=== PATIENT | male | born 1945 | race Caucasian/White ===

== ENCOUNTER → 2017-03-17 | Outpatient (CLI) | payer MEDICARE ==
[2015-04-06 07:00] VITALS: BP 137/77
[~2017-03-17] MED LIST: ASPI-482 PO; ASPI-630 PO; CALC-44 PO; FERR325C PO; FISH OIL OMEGA1 EACH PO; LOSA1TAB16 PO; METO50TA10 PO; OXYC1TAB7 PO; SILO4CAP PO; SIMV40TA3 PO; TERA5CAP3 PO
--- NOTE | 2017-03-17 10:31 | CARD ---
APPROVED REPORT EXAM: Two-dimensional and M-mode echocardiogram with Doppler and color Doppler. Other Information Quality : GoodHR: 50bpm Rhythm : Bradycardia INDICATION Dyspnea RISK FACTORS Hypertension Hyperlipidemia Smoking 2D DIMENSIONS RVDd2.8 (2.9-3.5cm)Left Atrium(2D)5.0 (1.6-4.0cm) IVSd1.2 (0.7-1.1cm)Aortic Root(2D)3.2 (2.0-3.7cm) LVDd5.6 (3.9-5.9cm)LVOT Diameter2.4 (1.8-2.4cm) PWd1.3 (0.7-1.1cm)LVDs3.8 (2.5-4.0cm) FS (%) 32.9 %SV94.4 ml LVEF(%)60.7 (>50%) Aortic Valve AoV Peak Marcello.99.0cm/sAoV VTI23.1cm AO Peak GR.3.9mmHgLVOT Peak Marcello.64.5cm/s LVOT VTI 14.31cmAO Mean GR.2mmHg YANG (VMAX)2.30up8SWR (VTI)2.89cm2 Mitral Valve MV E Nacpltcf27.5cm/sMV DECEL TVWL336wm MV A Qgoaloel46.9cm/sMV E Mean Gr.1mmHg MV HET52ybK/A Ratio1.4 MV A Xponuosw89llYQF (PHT)2.58cm2 TDI E/Lateral E'6.0E/Medial E'7.8 Pulmonary Valve PV Peak Wywwlnhw51.5cm/sPV Peak Grad.2mmHg Tricuspid Valve TR P. Uvktjeln333ur/sTR Peak Gr.22mmHg Pulmonary Vein S1 Zsacpwhy20.1cm/sD2 Jnnjcijj20.8cm/s PVa plknlkpk43rvep LEFT VENTRICLE The left ventricle is normal size. There is mild concentric left ventricular hypertrophy. Low normal EF of 50-55% Subtle mild global hypokinesis. Otherwise, no significant wall motion abnormalities. The left ventricular diastolic function and filling is normal for age. No left ventricle thrombus noted on this study. RIGHT VENTRICLE The right ventricle is normal size. There is normal right ventricular wall thickness. The right ventr icular systolic function is normal. ATRIA The left atrium is mdoerately dilated. The right atrium size is normal. The interatrial septum is int act with no evidence for an atrial septal defect or patent foramen ovale as noted on 2-D or Doppler i maging. AORTIC VALVE The aortic valve is not well visualized. The aortic valve is trileaflet. Doppler and Color Flow revea led no significant aortic regurgitation. There is no significant aortic valvular stenosis. MITRAL VALVE The mitral valve leaflets are moderately thickened. There is no evidence of mitral valve prolapse. Th ere is no mitral valve stenosis. Doppler and Color Flow revealed mild mitral regurgitation. TRICUSPID VALVE Doppler and Color Flow revealed mild tricuspid regurgitation. The pulmonary artery systolic pressure is estimated at 25 mmHg. There is no pulmonary hypertension. PULMONIC VALVE Doppler and Color Flow revealed trace pulmonic valvular regurgitation. There is no pulmonic valvular stenosis. GREAT VESSELS The aortic root is normal in size. The ascending aorta is normal in size. The pulmonary artery is nor mal. The IVC is normal in size and collapses >50% with inspiration. PERICARDIAL EFFUSION There is no evidence of significant pericardial effusion. Critical Notification Critical Value: No <Conclusion> The left ventricular systolic function is normal and the ejection fraction is within normal range. T he Ejection Fraction is 55%. Low normal EF of 50-55% Subtle mild global hypokinesis. Otherwise, no significant wall motion abnormalities. Doppler and Color Flow revealed mild mitral regurgitation.
== END | disposition home or self-care (01) ==
LOC: ECHO 08:59
PROVIDERS: ATTEND Internal Medicine Cardiovascular Disease
DX: I08.1 Rheumatic disorders of both mitral and tricuspid valves (principal); I25.10 Atherosclerotic heart disease of native coronary artery without angina pectoris; E78.5 Hyperlipidemia, unspecified; I10 Essential (primary) hypertension; R00.1 Bradycardia, unspecified; F17.200 Nicotine dependence, unspecified, uncomplicated
CPT/HCPCS: 93306

== ENCOUNTER → 2019-06-13 | Outpatient (CLI) | payer MEDICARE ==
[2015-04-06 07:00] VITALS: BP 137/77
[~2019-06-13] MED LIST changes: -LOSA1TAB16 PO; +LOSA1TAB19 PO; -METO50TA10 PO; +METO50TA29 PO
--- NOTE | 2019-06-13 11:27 | RAD ---
PQRS Compliance Statement: One or more of the following individualized dose reduction techniques were utilized for this examination: 1. Automated exposure control 2. Adjustment of the mA and/or kV according to patient size 3. Use of iterative reconstruction technique CT chest without contrast (lung cancer screening) 06/13/2019 INDICATION: Smoker for 30 years, smoking 1 pack a day. COMPARISON: None available TECHNIQUE: Multiple axial CT images of the chest were obtained without intravenous contrast utilizing low-dose technique. Coronal and sagittal reformats are provided. FINDINGS: There is biapical pleural-parenchymal scarring. Mild paraseptal emphysematous changes are identified in the upper lobes. Subpleural calcified granulomas identified in the anterior right middle lobe measuring 7 mm. Subpleural calcified nodule is identified in the posterior right lower lobe measuring 5 mm. There is a subpleural calcified nodule in the inferior lingula measuring 14 mm. No solid noncalcified pulmonary nodules are identified. There are no pleural effusions. No pulmonary vascular congestion or pneumothorax. No pathologically enlarged thoracic lymph nodes. Heart size is within normal limits. Coronary artery vascular calcifications are present. Thoracic aorta is normal in course and caliber with mild calcified atheromatous plaque. Median sternotomy changes are present. No suspicious osseous abnormality is identified. Left hepatic lobe cyst measures 18 mm. Right hepatic lobe cyst measures 15 mm. Spleen and bilateral adrenal glands are normal in appearance. Superior pole left renal cyst measures 5.7 cm with minimal peripheral calcification. Right interpolar renal cyst measures 6.5 cm. IMPRESSION: 1. Calcified pulmonary nodules most favor sequela prior granulomatous exposure (lung RADS category 1, negative). No suspicious solid noncalcified pulmonary nodules. Recommend low-dose chest CT in one year. 2. Simple hepatic cysts. 3. 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 4. Suspect simple renal cysts. Further characterization with renal ultrasound may be of benefit. Electronically signed by: Tahmina Carr MD (06/13/2019 11:24 AM) [email or web address]
== END | disposition home or self-care (01) ==
LOC: CT 10:35
PROVIDERS: ATTEND Internal Medicine Pulmonary Disease
DX: Z12.2 Encounter for screening for malignant neoplasm of respiratory organs (principal); J43.9 Emphysema, unspecified; J84.10 Pulmonary fibrosis, unspecified; R91.8 Other nonspecific abnormal finding of lung field; I70.0 Atherosclerosis of aorta; I25.10 Atherosclerotic heart disease of native coronary artery without angina pectoris; K76.89 Other specified diseases of liver; N28.1 Cyst of kidney, acquired; Z95.1 Presence of aortocoronary bypass graft; Z87.891 Personal history of nicotine dependence
CPT/HCPCS: 71250

== ENCOUNTER → 2020-07-23 | Outpatient (CLI) | payer MEDICARE ==
[2015-04-06 07:00] VITALS: BP 137/77
[~2020-07-23] MED LIST changes: +SIMV40TA18 PO; -SIMV40TA3 PO
--- NOTE | 2020-07-23 15:09 | RAD ---
EXAM: CT CHEST WITHOUT CONTRAST HISTORY: Pulmonary nodules COMPARISON: CT chest 06/13/2019 TECHNIQUE: Helical CT of the chest performed without contrast. Coronal and sagittal reformats were obtained. One or more of the following individualized dose reduction techniques were utilized for this examination: 1. Automated exposure control 2. Adjustment of the mA and/or kV according to patient size 3. Use of iterative reconstruction technique. FINDINGS: Thyroid gland and thoracic inlet: Visualized portion of the thyroid gland is normal. Heart and great vessels: Heart is normal in size. There are surgical changes of CABG. No pericardial effusion. Thoracic aorta is normal in caliber. Mild aortic calcifications. Mediastinum and alonso: No mediastinal or hilar lymphadenopathy. Lungs and pleura: There is biapical pleural parenchymal scarring. Scattered subpleural calcified granulomas in the right middle lobe, right lower lobe, and left upper lobe are unchanged. There is mild atelectasis in the left lower lobe. Chest wall and axillae: Chest wall is unremarkable. No axillary lymphadenopathy. Upper abdomen: Partially visualized exophytic simple left renal cyst and several low density liver cysts measuring up to 1.7 cm are unchanged. Bones: There is mild degenerative disc disease in the thoracic spine. IMPRESSION: Unchanged calcified granulomas in the lungs. No suspicious pulmonary nodule. Electronically signed by: Tiara Mena MD (07/23/2020 3:06 PM) [id number]
== END | disposition home or self-care (01) ==
LOC: CT 10:37
PROVIDERS: ATTEND Internal Medicine Pulmonary Disease
DX: J98.11 Atelectasis (principal); J98.4 Other disorders of lung; J84.10 Pulmonary fibrosis, unspecified; M51.34 Other intervertebral disc degeneration, thoracic region; Z95.1 Presence of aortocoronary bypass graft
CPT/HCPCS: 71250

== ENCOUNTER 2020-09-24 22:40 | Emergency (ER) | payer MEDICARE ==
[~2020-09-24] VITALS: Ht 170.2 cm; Wt 71.8 kg
--- NOTE | 2020-09-24 23:10 | ED.ADGEN ---
Past Medical History Smoking Status: Former Smoker General Adult EDM: Chief Complaint: SYNCOPE HPI: HPI: Patient is a 75 year old male brought in by EMS for near syncopal episode. Has felt lightheaded but then states he almost passed out when trying to go get the shower. States he did not fall or hit his head but has an abrasion to his right elbow. Patient tested positive for Covid 19 about 5 days ago, has about 10 days of symptoms. Patient states he has not been coughing severely and does not feel short of breath. Denies any pain anywhere. Patient states that he does not think he has been eating and drinking well enough, and has a few episodes of nonbloody nonmelanotic diarrhea yesterday. Denies any fevers. Denies any changes in urination. Not had any nausea or vomiting. Per EMS his systolic blood pressure was 147 laying and 88 standing, given 400 cc NS in route Review of Systems: Review of Systems: Constitutional: Denies fever or chills. [] Eyes: Denies change in visual acuity. [] HENT: Denies nasal congestion or sore throat. [] Respiratory: Denies cough or shortness of breath. [] Cardiovascular: Denies chest pain or edema. [] Lightheaded and near syncope GI: Denies abdominal pain, nausea, vomiting, but had diarrhea yesterday : Denies dysuria. [] Musculoskeletal: Denies back pain or joint pain. [] Integument: Denies rash. [] Neurologic: Denies headache, focal weakness or sensory changes. [] Endocrine: Denies polyuria or polydipsia. [] Lymphatic: Denies swollen glands. [] Psychiatric: Denies depression or anxiety. [] Current Medications: Current Medications Medications (Trade) Dose Ordered Sig/Jaclyn Start Time Stop Time Status Last Admin Dose Admin Sodium Chloride 1,000 ml @ 1,000 mls/hr 1X ONCE 09/24/20 23:30 09/25/20 00:29 DC 09/24/20 23:24 1,000 MLS/HR Allergies: Allergies: Allergies Coded Allergies Type Severity Reaction Last Updated Verified No Known Drug Allergies 04/02/15 No Physical Exam: PE: Constitutional: Well developed, well nourished, no acute distress, non-toxic appearance. [] HENT: Normocephalic, atraumatic, bilateral external ears normal, oropharynx moist, no oral exudates, nose normal. [] Eyes: PERRLA, EOMI, conjunctiva normal, no discharge. [] Neck: Normal range of motion, no tenderness, supple, no stridor. [] Cardiovascular:Heart rate regular rhythm, no murmur [] Lungs & Thorax: Bilateral breath sounds clear to auscultation [] Abdomen: Bowel sounds normal, soft, no tenderness, no masses, no pulsatile masses. [] Skin: Warm, dry, no erythema, no rash. [] Back: No tenderness, no CVA tenderness. [] Extremities: No tenderness, no cyanosis, no clubbing, ROM intact, no edema. [] Neurologic: Alert and oriented X 3, normal motor function, normal sensory function, no focal deficits noted. [] Psychologic: Affect normal, judgement normal, mood normal. [] Current Patient Data: Labs: Laboratory Tests Test 09/24/20 23:20 White Blood Count 4.9 x10^3/uL (4.0-11.0) Red Blood Count 3.98 x10^6/uL (4.30-5.70) L Hemoglobin 13.5 g/dL (13.0-17.5) Hematocrit 39.0 % (39.0-53.0) Mean Corpuscular Volume 98 fL (79-100) Mean Corpuscular Hemoglobin 34 pg (25-35) Mean Corpuscular Hemoglobin Concent 35 g/dL (31-37) Red Cell Distribution Width 13.8 % (11.5-14.5) Platelet Count 108 x10^3/uL (140-400) L Neutrophils (%) (Auto) 82 % (31-73) H Lymphocytes (%) (Auto) 10 % (24-48) L Monocytes (%) (Auto) 7 % (0-9) Eosinophils (%) (Auto) 0 % (0-3) Basophils (%) (Auto) 1 % (0-3) Neutrophils # (Auto) 4.0 x10^3/uL (1.8-7.7) Lymphocytes # (Auto) 0.5 x10^3/uL (1.0-4.8) L Monocytes # (Auto) 0.3 x10^3/uL (0.0-1.1) Eosinophils # (Auto) 0.0 x10^3/uL (0.0-0.7) Basophils # (Auto) 0.0 x10^3/uL (0.0-0.2) Prothrombin Time 13.6 SEC (11.7-14.0) Prothrombin Time INR 1.1 (0.8-1.1) D-Dimer (Cassandra) 0.68 ug/mlFEU (0.00-0.50) H Sodium Level 134 mmol/L (136-145) L Potassium Level 3.3 mmol/L (3.5-5.1) L Chloride Level 98 mmol/L (98-107) Carbon Dioxide Level 30 mmol/L (21-32) Anion Gap 6 (6-14) Blood Urea Nitrogen 28 mg/dL (8-26) H Creatinine 1.3 mg/dL (0.7-1.3) Estimated GFR (Cockcroft-Gault) 53.8 BUN/Creatinine Ratio 22 (6-20) H Glucose Level 126 mg/dL (70-99) H Lactic Acid Level 1.9 mmol/L (0.4-2.0) Calcium Level 8.6 mg/dL (8.5-10.1) Total Bilirubin 1.1 mg/dL (0.2-1.0) H Aspartate Amino Transferase (AST) 26 U/L (15-37) Alanine Aminotransferase (ALT) 20 U/L (16-63) Alkaline Phosphatase 57 U/L (46-116) Troponin I Quantitative 0.022 ng/mL (0.000-0.055) PQ-Rqk-A-Type Natriuretic Peptide 422 pg/mL (0-449) Total Protein 6.9 g/dL (6.4-8.2) Albumin 3.1 g/dL (3.4-5.0) L Albumin/Globulin Ratio 0.8 (1.0-1.7) L Laboratory Tests 09/24/20 23:20 Laboratory Tests 09/24/20 23:20 Vital Signs: Vital Signs Date Time Temp Pulse Resp B/P (MAP) Pulse Ox O2 Delivery O2 Flow Rate FiO2 09/24/20 22:50 100.0 79 16 145/72 (96) 97 Room Air 100.0 EKG: EKG: Atrial fibrillation, rate 82, no obvious ST elevation or depression but limited by artifact left axis deviation [] Heart Score: Risk Factors: Risk Factors: DM, Current or recent (<one month) smoker, HTN, HLP, family history of CAD, obesity. Risk Scores: Score 0 - 3: 2.5% MACE over next 6 weeks - Discharge Home Score 4 - 6: 20.3% MACE over next 6 weeks - Admit for Clinical Observation Score 7 - 10: 72.7% MACE over next 6 weeks - Early Invasive Strategies Radiology/Procedures: Radiology/Procedures: EP interpretation: No pneumonia, opacities, no cardiomegaly, sternotomy wires in place [] Course & Med Decision Making: Course & Med Decision Making Pertinent Labs and Imaging studies reviewed. (See chart for details) Patient status much improved after IV fluids. Instructed patient to continue encouraging p.o. intake despite Covid and his decreased appetite and smell and taste. Has had no pulmonary issues since being in the emergency department. Repeat troponin nonischemic [] Rina Disclaimer: Rina Disclaimer: This electronic medical record was generated, in whole or in part, using a voice recognition dictation system. Departure Departure Impression: Primary Impression: Dehydration Disposition: 01 DC HOME SELF CARE/HOMELESS Condition: IMPROVED Referrals: VIPUL WEINSTEIN MD (PCP) Patient Instructions: Rehydration, Elderly MARCIE ROD MD Sep 24, 2020 23:10
[2020-09-24] MEDS ORDERED: IV NORMAL SALINE 1000ML BAG 1,000 ML IV ONE (23:30)
[2020-09-24 23:32] LABS: HEMOGLOBIN 13.5 g/dL (13.0-17.5); MEAN CORPUSCULAR HEMOGLOBIN 34 pg (25-35); MEAN CORPUSCULAR HGB CONC 35 g/dL (31-37); MEAN CORPUSCULAR VOLUME 98 fL (79-100); PLATELET COUNT 108 x10^3/uL (140-400); RED BLOOD COUNT 3.98 x10^6/uL (4.30-5.70); RED CELL DISTRIBUTION WIDTH 13.8 % (11.5-14.5); WHITE BLOOD COUNT 4.9 x10^3/uL (4.0-11.0)
[2020-09-24 23:33] LABS: BASO % 1 % (0-3); EOS % 0 % (0-3); LYMPH # 0.5 x10^3/uL (1.0-4.8); LYMPH % 10 % (24-48); MONO # 0.3 x10^3/uL (0.0-1.1); MONO % 7 % (0-9); NEUT % 82 % (31-73)
[2020-09-24 23:51] LABS: ALBUMIN 3.1 g/dL (3.4-5.0); ALBUMIN/GLOBULIN RATIO 0.8 (1.0-1.7); CALCIUM 8.6 mg/dL (8.5-10.1); TOTAL PROTEIN 6.9 g/dL (6.4-8.2)
[2020-09-24 23:52] LABS: CREATININE 1.3 mg/dL (0.7-1.3); GFR 53.8; POTASSIUM 3.3 mmol/L (3.5-5.1); TOTAL BILIRUBIN 1.1 mg/dL (0.2-1.0)
[2020-09-24 23:53] LABS: D-DIMER 0.68 ug/mlFEU (0.00-0.50); PROTHROMBIN TIME PATIENT 13.6 SEC (11.7-14.0)
[2020-09-25] MEDS ORDERED: IV NORMAL SALINE 1000ML BAG 1,000 ML IV SCH (03:00)
--- NOTE | 2020-09-25 05:16 | RAD ---
CHEST AP ONLY History: Reason: presyncope / Spl. Instructions: / History: Comparison: April 30, 2015 Findings: Low lung volumes. Mild bibasilar atelectasis. No pneumothorax. No pleural effusion. Left midlung calcified pulmonary nodule, unchanged, likely primary illness disease Prior median sternotomy. Normal heart size. Impression: 1. Low lung volumes with mild bibasilar linear atelectasis. Electronically signed by: Lazaro Jackson DO (09/25/2020 5:13 AM) [facility]
[2020-09-25 05:22] LABS: BILIRUBIN,URINE NEGATIVE (NEG); CLARITY,URINE CLEAR; COLOR,URINE YELLOW
[2020-09-25 05:23] LABS: BACTERIA,URINE 0 /HPF (0-FEW); NITRITE,URINE NEGATIVE (NEG); PH,URINE 6.5 (<5.0-8.0); PROTEIN,URINE 30 mg/dL (NEG-TRACE); UROBILINOGEN,URINE 0.2 mg/dL (0.2 mg/dL); WBC,URINE 0 /HPF (0-4)
--- NOTE | 2020-09-25 07:10 | EKG ---
[facility] [address] [place] [address] Test Date: 2020-09-24 Test Time: 23:03:37 Pat Name: MYAH ZAVALA Department: Room: Gender: M [employer] Service Representative: : 1945 Requested By: MARCIE ROD Order Number: [id number] Reading MD: Measurements Intervals [place] Rate: 82 P: NM: QRS: -14 QRSD: 88 T: -114 QT: 422 QTc: 496 Interpretive Statements ATRIAL FLUTTER LEFTWARD AXIS QRS(T) CONTOUR ABNORMALITY CONSIDER INFERIOR MYOCARDIAL DAMAGE ST & T ABNORMALITY, CONSIDER ANTERIOR ISCHEMIA OR LEFT VENTRICULAR STRAIN LATERAL ISCHEMIA OR LEFT VENTRICULAR STRAIN ABNORMAL ECG RI6.01 No previous ECG available for comparison
[2020-09-25 07:37] VITALS: BP 131/71
== END 2020-09-25 07:25 | disposition home or self-care (01) ==
LOC: ER 22:40
DX: E86.0 Dehydration (principal); Z87.891 Personal history of nicotine dependence
CPT/HCPCS: 36415; 71045; 80053; 81001; 83605; 83880; 84484; 85025; 85379; 85610; 93005; 96360; 96361; 99285; J7030

== ENCOUNTER → 2021-08-21 | Outpatient (CLI) | payer MEDICARE ==
--- NOTE | 2021-08-21 14:21 | RAD ---
EXAM: CT CHEST WITHOUT CONTRAST HISTORY: COPD COMPARISON: CT chest 07/23/2020 TECHNIQUE: Helical CT of the chest performed without contrast. Coronal and sagittal reformats were o btained. One or more of the following individualized dose reduction techniques were utilized for this examinat ion: 1. Automated exposure control 2. Adjustment of the mA and/or kV according to patient size 3. Use of iterative reconstruction technique. FINDINGS: Thyroid gland and thoracic inlet: Visualized portion of the thyroid gland is normal. Heart and great vessels: The heart is normal in size. There are coronary artery calcifications and quiñones rgical changes of CABG. The thoracic aorta is normal in caliber. Mild calcified aortic atherosclerosi s. Mediastinum and alonso: Unchanged precarinal lymph node measuring 6 mm short axis. No lymphadenopathy. Lungs and pleura: A trace left pleural effusion is unchanged. There are adjacent subpleural bandlike confluent opacities in the left lower lobe consistent with atelectasis, the unchanged. There are a fe w scattered subpleural calcified granulomas in the lungs. No suspicious pulmonary nodule. Unchanged m ild pleural parenchymal scarring in the apices and mild paraseptal emphysema. Central airways are lore ar. No pleural effusion. Chest wall and axillae: No axillary lymphadenopathy. Upper abdomen: There is a partially visualized exophytic left simple cyst measuring at least 8 cm. Ad ditional 1.6 cm left renal cysts. There is left nephrolithiasis. Cholelithiasis. There is a 1.6 cm si mple cyst in the left hepatic lobe and a few other subcentimeter hypodensities in the liver that are too small characterize. Bones: No acute osseous abnormality. IMPRESSION: 1. Unchanged trace left pleural effusion and adjacent atelectasis in the left lower lobe. Scattered calcified granulomas. Mild paraseptal emphysema. 2. Unchanged hepatic cysts. 3. There are 2 fluid density left renal cysts, one of which is partially visualized and measures at least 8 cm. 4. Cholelithiasis. Electronically signed by: Tiara Mena MD (08/21/2021 2:18 PM) [id number]
== END ==
LOC: CT 09:20
PROVIDERS: ATTEND Internal Medicine Pulmonary Disease
DX: J90 Pleural effusion, not elsewhere classified (principal); J98.11 Atelectasis; J44.9 Chronic obstructive pulmonary disease, unspecified; J84.10 Pulmonary fibrosis, unspecified; J98.4 Other disorders of lung; I25.10 Atherosclerotic heart disease of native coronary artery without angina pectoris; I70.0 Atherosclerosis of aorta; N28.1 Cyst of kidney, acquired; N20.0 Calculus of kidney; K80.20 Calculus of gallbladder without cholecystitis without obstruction; K76.89 Other specified diseases of liver
CPT/HCPCS: 71250